=== PATIENT | male | born 1970 ===

== ENCOUNTER → 2021-07-23 11:54 | Outpatient (CLI) | payer OTHER, SELFPAY ==
[2021-07-23 13:19] LABS: COVID19 -Nasal RAPID Negative (Negative)
== END ==
PROVIDERS: Visit Provider Nurse Practitioner Family
DX: Z01.812 Encounter for preprocedural laboratory examination (principal); Z20.822 Contact with and (suspected) exposure to COVID-19
CPT/HCPCS: 87635

== ENCOUNTER 2021-07-25 07:33 | Day surgery (SDC) | payer OTHER, SELFPAY ==
--- NOTE | 2021-07-25 | PATH_ITS ---
[facility] Accession Number: [id number] . 01 Material submitted: . rectum - RECTAL . 02 Diagnosis: Rectum, Biopsies: Severely active colitis with ulceration and granulation tissue. Please see comment. Negative for granulomas, dysplasia and malignancy. [facility] 07/27/2021 1125 Local . 02 Comment: An immunohistochemical stain for CMV will be performed and the results reported as an addendum. The differential diagnosis includes infection, medication-related mucosal injury, diversion colitis, or changes related to the patient's provided clinical history of Crohn's disease. . 02 Electronically signed: . Miriam Gilmore MD, Pathologist NPI- [id number] . 01 Gross description: . RECTAL: Received in formalin are 2 fragment(s) of chilel, soft tissue measuring 0.4 x 0.2 x 0.1 cm to 0.3 x 0.2 x 0.1 cm submitted entirely in 1 cassette(s) /KIRBY 07/26/2021 0429 Local . 02 Pathologist provided ICD-10: K50.90 . 02 CPT . 528618 Performed at: 01 [facility] [address] [place] [address], [place], [place] [id number] MD Ritesh Espinosa MD Phone: [phone] Performed at: 02 [facility] [address] [place], [place] [id number] MD Miriam Gilmore MD Phone: [phone]
[2021-07-25 07:57] VITALS: BP 130/86; PULSE 95; RESP 16; TEMP 36.8; O2SAT 99; BMI 39.4
[2021-07-25] MEDS: SODIUM CHLORIDE 0.9% 1,000 ML 125 ML IV (08:15)
--- NOTE | 2021-07-25 08:30 | PM.HP.1 ---
History of Present Illness History of Present Illness Date Patient Seen: 07/25/21 Time Patient Seen: 08:30 Chief complaint: SDC Narrative: I reviewed Dr. Recio's note from earlier this spring no changes. Patient has no abdominal pain he is asymptomatic from a inflammatory bowel standpoint. Patient History Family & Social History Social History: household members spouse Tobacco & Substance use: Smoking Status Former smoker alcohol intake current alcohol intake frequency holiday/special occasion Substance Use Type does not use Meds Home Medications and Allergies Home Medications Medication Instructions Recorded Confirmed Type hydrochlorothiazide 12.5 mg tablet 12.5 mg PO DAILY 07/25/21 07/25/21 History losartan 50 mg tablet 50 mg PO DAILY 07/25/21 07/25/21 History rosuvastatin 20 mg tablet 20 mg PO DAILY 07/25/21 07/25/21 History Allergies Allergy/AdvReac Type Severity Reaction Status Date / Time codeine Allergy Intermediate ITCHING Verified 07/25/21 07:51 Review of Systems Review of Systems ROS: Yes All systems reviewed with the patient and are negative except as otherwise documented Exam Vital Signs (past 8 hours): - 07/25/21 07:57 Temperature 98.2 F Pulse Rate 95 H Respiratory Rate 16 Blood Pressure 130/86 Pulse Oximetry 99 Oxygen Delivery Method Room Air Const General: cooperative and comfortable Orientation: alert HENMT Head: normocephalic Ears: external ears normal Nose: external nose normal Face and sinus: normal facial exam Mouth: oral mucosae normal Eyes General: appearance normal, both eyes and all related structures Neck Neck: normal visual inspection Chest Chest: normal inspection of the chest Resp Effort & Inspection: normal respiratory effort Auscultation: clear to auscultation bilaterally Cardio Rate: regular rate Rhythm: regular rhythm Heart Sounds: no murmurs GI Inspection: large pannus, obesity and scar Palpation: soft and No tender Auscultation: normal bowel sounds Other: Right lower quadrant stoma Skin General: no rashes or lesions noted and No jaundice Neuro General: patient alert and moves all extremities Cognition: normal cognition Speech: speech normal Extrem General: no pedal edema Psych Appearance: grossly normal Assessment & Plan Assessment & Plan narrative: 51-year-old male with a history of Crohn's colitis. He has had partial colectomy and has a permanent end colostomy. He drains some mucus per rectum. Colon cancer screening is pursued via stoma and per rectum today. Time Spent With Patient Critical Care time: I spent a total of [] minutes of critical care time on this patient's care today; this time is exclusive of procedural time.
--- NOTE | 2021-07-25 08:33 | PM.PREOP ---
Pre-operative Note COVID-19 COVID-19 status: Negative Result date/Date tested (Pos, Neg/Pending): 07/23/21 Interval Note History & Physical reviewed/Exam performed by Physician: Yes Changes to H&P: No ASA Class (for procedural sedation): III
--- NOTE | 2021-07-25 09:30 | P.OP.ENDO_ITS ---
Operative Date/Time/Diagnoses Date of procedure: 07/25/21 Time of procedure: 09:30 Pre-op diagnosis: Crohn's colitis, indicated for colon cancer screening Post-op diagnosis: same Procedure & Clinicians Study performed: Ileoscopy and a proctoscopy with biopsies Same procedure as scheduled: No Indications: Crohn's colitis status post end ileostomy here for colon cancer screening Surgeon: Madan Rome Procedure Notes SCOAP/Timeout: Done Procedure in detail: After the risks and benefits were explained, written and verbal informed consent was obtained. The patient was brought into the procedure room and placed into the left lateral decubitus position. See nurse rotary surface grinder notes Digital rectal examination was accomplished. The anal canal was stenotic to the gloved well lubricated index finger I could not get my f jung all the way inside. I did not appreciate a mass lesion we attempted to introduce the pediatric colonoscope but the caliber of the scope was simply too large. We therefore switched over to the right lower quadrant stoma removed his stoma bag. There is moderate amount of residual stool debris that required cleaning we then lubricated the stoma it digitally and a advance the pediatric colonoscope for perhaps 20-30 cm into the ileum. I did not see any residual colon. This was an end ileostomy. There were a few scattered erosive areas in the ceci terminal ileum otherwise the mucosa appeared well preserved and normal with the exception of the last 1-2 cm of stoma where there was moderate erythema friability and obvious ulceration. This area was quite difficult to access with the forceps simply by the fact that it was quite difficult to maintain scope position right at the interface of ileum with skin. Photographs were taken. In spite of the inflammation there was no obvious stenosis access to the more proximal ileum was quite easy We then once again turned our attention to the rectum and swiped the scope out for a standard upper endoscope. We lubricated this and introduced it into the rectum but were unable to pass it beyond 1-2 cm secondary to significant friability and stenosis. The we reached out with the standard forceps for a couple of biopsies for histopathologic analysis of this location. Although diversion colitis/proctitis is certainly possible, based on the appearance in the ileum I suspect this may be evidence of active Crohn's proctitis as well. Endoscopic diagnosis 1. End ileostomy with very distal active inflammation 2. 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 Await histopathology 2. Short-term GI clinic follow-up to discuss long-term plans to reduce the inflammatory process and determine the optimal surveillance protocol here for [place]. Disposition: PACU
[2021-07-25 09:33] VITALS: BP 101/68; PULSE 73; RESP 12; TEMP 36.2; O2SAT 96
[2021-07-25 09:39] VITALS: BP 109/79; PULSE 74; RESP 12; O2SAT 96
[2021-07-25 09:43] VITALS: BP 117/81; PULSE 65; RESP 12; TEMP 36.2; O2SAT 97
[2021-07-25 09:48] VITALS: BP 116/81; PULSE 67; RESP 12; O2SAT 97
[2021-07-25 09:55] VITALS: BP 118/79; PULSE 67; RESP 14; TEMP 36.2; O2SAT 98
== END 2021-07-25 10:01 | disposition home or self-care (01) ==
PROVIDERS: Referring Provider Internal Medicine Gastroenterology; Visit Provider Internal Medicine Gastroenterology
PROC: 0DJD8ZZ Inspection of Lower Intestinal Tract, Via Natural or Artificial Opening Endoscopic (ICD-10-PCS; CPT 45378; principal; 2021-07-25 09:00)
DX: Z12.11 Encounter for screening for malignant neoplasm of colon (principal); K50.90 Crohn's disease, unspecified, without complications; K62.4 Stenosis of anus and rectum; K62.89 Other specified diseases of anus and rectum; Z93.3 Colostomy status
CPT/HCPCS: 44380; 45331